=== PATIENT | male | born 1950 | race Caucasian/White ===

== ENCOUNTER → 2020-07-12 | Outpatient (CLI) | payer MEDICARE, OTHER ==
--- NOTE | 2020-07-12 12:54 | RADIOLOGY REPORT (SQ) ---
EXAM DESCRIPTION: MRI LT LOWER JOINT WITHOUT IMAGES COMPLETED DATE/TIME: 07/12/2020 10:42 am REASON FOR STUDY: LEFT KNEE PAIN (M25.562) M25.562 PAIN IN LEFT KNEE COMPARISON: None. TECHNIQUE: Leftknee images acquired and stored on PACS. Multiplanar images include fat sensitive se quences as T1, water sensitive sequences as FST2 or STIR, cartilage sensitive sequences as FSPD, and gradient echo sequences. LIMITATIONS: Motion artifact. FINDINGS: JOINT AND BURSAE: Joint effusion. BONE CORTEX AND MARROW: No alteration of signal to suggest marrow replacement. No worrisome bone lesi ons. No occult fracture. ACL: Intact. No degeneration or ganglion cyst. PCL: Intact. MCL: Intact. No periligamentous edema or fluid. LCL: Intact. No periligamentous edema or fluid. MEDIAL MENISCUS: Attenuated. Horizontal tear posterior horn. Meniscal fragment near the root. LATERAL MENISCUS: Intact. MEDIAL COMPARTMENT: Extensive cartilage loss and subchondral edema in the femoral condyle. More foca l osteochondral lesion tibial plateau articular surface. LATERAL COMPARTMENT: Cartilage relatively preserved. No large osteophytes or subchondral edema. PATELLA: Mild osteoarthritis. EXTENSOR MECHANISM: Intact. Quadriceps and patella tendons normal. SOFT TISSUES: Ruptured Hernandez's cyst. OTHER: No other significant finding. IMPRESSION: 1. Horizontal tear posterior horn medial meniscus. Small meniscal fragment near the root. 2. 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 3. Joint effusion. 4. Ruptured Hernandez cyst. TECHNICAL DOCUMENTATION: JOB ID: [id number] [employer]- All Rights Reserved Reading location - IP/workstation name: [email or web address]
== END ==
LOC: RAD 09:49
PROVIDERS: ATTEND Physician Assistant
DX: M25.562 Pain in left knee (principal)